=== PATIENT | male | born 1985 | race Caucasian/White ===

== ENCOUNTER 2018-02-05 07:29 | Day surgery (SDC) | payer OTHER ==
[2018-02-04 13:45] VITALS: BMI 26.1
[2018-02-05 07:50] LABS: #Eosinphils 0.2 thou/uL (0.0-0.7); #Monocytes 0.6 thou/uL (0.11-0.59); #Neutrophils 3.5 thou/uL (1.40-6.50); %Basophils 0.7 % (0.0-1.0); %Eosinophils 2.8 % (0.0-10.0); %Monocytes 9.4 % (0.0-10.0); %Neutrophils 55.1 % (42.0-75.0); Hemoglobin 15.2 g/dL (14.0-18.0); Mean Corpuscular HGB CONC 33.7 g/dL (32.0-36.0); Mean Corpuscular Hemoglobin 30.1 pg (27.0-31.0); Mean Corpuscular Volume 89.3 fL (78.0-98.0); Mean Platelet Volume 7.2 fL (7.4-10.4); Platelet Count 225 thou/uL (130-400); RBC Distribution Width 11.6 % (11.5-14.5); Red Blood Cell (RBC) Count 5.04 mill/uL (4.70-6.10); White Blood Cell (WBC) Count 6.4 thou/uL (4.8-10.8)
[2018-02-05 07:54] LABS: PTT 25.5 SEC (22.9-36.1); Prothrombin Time 12.8 SEC (12.0-14.7)
[2018-02-05] MEDS ORDERED: Fentanyl 100 MCG/2 ML VIAL ONE (08:45)
[2018-02-05] MEDS ORDERED: Midazolam HCl 2 mg/2 ml Vial ONE (08:45)
[2018-02-05] MEDS ORDERED: Sodium Bicarbonate 2.5 MEQ/5 ML VIAL ONE (08:46)
[2018-02-05 09:43] VITALS: BP 135/86; TEMP 98.4
--- NOTE | 2018-02-05 13:20 | ULT ---
SONOGRAPHIC GUIDED RANDOM HEPATIC BIOPSY: Date: 02/05/18 CONSCIOUS SEDATION: 1 mg Versed IV, 50 mcg Fentanyl IV. Approximately 20 minutes spent with the patient during conscious sedation. HISTORY: Abnormal liver function tests. FINDINGS: After explaining the procedure and answering all questions, limited sonographic imaging was performed . Subxiphoid approach was not appropriate. Sterile technique, buffered local anesthesia, conscious se dation, lateral approach, and sonographic guidance were used to carefully advance a 17 gauge trocar n eedle into the right liver lobe. Position was confirmed with sonogram. A total of two 18 gauge core b iopsy specimens were obtained and eventually submitted to pathology for evaluation. Needle was remove d. No evidence of complication. The patient tolerated the procedure well and was returned to the [facility] area in good condition for further monitoring. IMPRESSION: Technically successful sonographic guided random hepatic biopsy. Pathology is pending. POS: [facility]
== END 2018-02-05 10:40 | disposition home or self-care (01) ==
LOC: ULT 07:29
PROVIDERS: ATTEND Internal Medicine Gastroenterology
PROC: 0FB03ZX Excision of Liver, Percutaneous Approach, Diagnostic (ICD-10-PCS; principal; 2018-02-05)
DX: K75.9 Inflammatory liver disease, unspecified (principal)
CPT/HCPCS: 36415; 47000; 76942; 85025; 85610; 85730; 88307; 88313; J2250; J3010